=== PATIENT | female | born 1930 | race Caucasian/White ===

== ENCOUNTER 2018-02-25 09:58 | Observation (INO) | payer MEDICARE, OTHER ==
--- NOTE | 2018-02-25 10:00 | PDOC ---
Attending Attestation - Resident Resident Name: Payam Doyle - ED Attending Attestation I have performed the following: I have examined & evaluated the patient, The case was reviewed & discussed with the resident, I agree w/resident's findings & plan, Exceptions are as noted - HPI HPI: 02/25/18 10:03 Ms stewart is an 87-year-old female presented to emergency department via EMS due to alterations in mental status. Her last normal well was somewhere between 8 and 9 PM. This morning she was noted to be unresponsive. Pt daughter was called and she is bedside CODE MERA called and pt sent immediately to CT - Physicial Exam PE: 02/25/18 10:57 On examination Pt was not initially responsive Upon further assessment Re Assessment Pt resists examiner opening her eyes Pt looks down when eyes opened Pupils are reactive to light, not pin point lungs are clear to auscultation Card RRR No abdominal rigidity or distention No lower extremity edema Well perfused Neuro: CN in tact Face symmetric sensation in tact all extremities (Evident by pt withdrawing from painful stimuli) moves all extremities For complete NIHSS, please see resident note 02/27/18 09:57 - Critical Care Time Total Critical Care Time: 60 Critical Care Statement: The care of this patient involved high complexity decision making to prevent further life threatening deterioration of the patient 's condition and/or to evaluate & treat vital organ system(s) failure or risk of failure. - Medical Decision Making 02/25/18 10:04 AMS: DD includes: Hemorrhagic CVA, Large ischemic CVA, Sepsis/infection, Will do stroke orderset Re assess 02/25/18 18:22 EKG: HR 72, LBBB 02/25/18 18:22 Laboratory Tests 02/25/18 02/25/18 10:00 10:15 WBC 6.1 Hgb 14.7 Hct 43.4 Plt Count 284 BUN 16 Creatinine 0.8 Random Glucose 95 Creatine Kinase 65 Troponin I < 0.02 Pt seen in the ER by Dr Morris Pt is more arousable and in fact sat forward, moved extremities ? acute psychosis vs sub-acute ischemic intracranial event Discharge Disposition - Diagnosis Acute psychosis - Discharge Dispostion Disposition: CARE HOME FACILITY Condition at time of disposition: Stable Last Admission D/C Date: 07/27/11 Decision to Admit order: Yes - Prescriptions - Referrals - Patient Instructions - Post Discharge Activity
[2018-02-25 10:29] LABS: BASO % 0.3 % (0-2.0)
[2018-02-25 10:31] LABS: EOS % 3.3 % (0-4.5); HEMATOCRIT 43.4 % (32.4-45.2); HEMOGLOBIN 14.7 GM/dL (10.7-15.3); LYMPH % 21.9 % (8-40); MCH 30.9 pg (25.7-33.7); MCHC 33.7 g/dl (32.0-36.0); MEAN CELL VOLUME 91.5 fl (80-96); MEAN PLT VOLUME 8.1 fl (7.5-11.1); MONO % 9.4 % (3.8-10.2); NEUT % 65.1 % (42.8-82.8); PLATELET COUNT 284 K/MM3 (134-434); RBC 4.75 M/mm3 (3.60-5.2); WHITE BLOOD COUNT 6.1 K/mm3 (4.0-10.0)
[2018-02-25 10:43] LABS: INR 0.94 (0.83-1.09); PROTHROMBIN TIME (PATIENT) 11.1 SEC (9.7-13.0)
[2018-02-25 10:59] LABS: ALBUMIN 3.8 g/dl (3.4-5.0); ALK PHOS 66 U/L (45-117); ANION GAP 8 MMOL/L (8-16); BILIRUBIN,TOTAL 0.4 mg/dL (0.2-1); BLOOD UREA NITROGEN 16 mg/dL (7-18); CALCIUM 10.2 mg/dL (8.5-10.1); CHLORIDE 103 mmol/L (98-107); CHOLESTEROL 245 mg/dL (50-200); CO2 27 mmol/L (21-32); CREATININE 0.8 mg/dL (0.55-1.3); GLUCOSE,RANDOM 95 mg/dL (74-106); HDL CHOLESTEROL 117 mg/dL (40-60); POTASSIUM 4.3 mmol/L (3.5-5.1); SGOT/AST 21 U/L (15-37); SGPT/ALT 16 U/L (13-61); SODIUM 138 mmol/L (136-145); TOT PROT 7.3 g/dl (6.4-8.2); TRIGLYCERIDES 117 mg/dL (0-150)
[2018-02-25] MEDS: SODIUM CHLORIDE 1,000 ML IV SCH (11:00)
--- NOTE | 2018-02-25 11:00 | PDOC ---
History of Present Illness - General Chief Complaint: CVA/TIA Stated Complaint: POSS STROKE Time Seen by Provider: 02/25/18 10:02 History Source: Patient, Family (daughter) Exam Limitations: Unresponsive - History of Present Illness Initial Comments: 02/25/18 11:42 87 yo female MADDISON, history provided by daughter. Pmh of dementia (unspecified), Acute psychosis (received TPA 3 years ago, no confirmed stroke and believed to be acute psychosis) presents from [facility] after being lethargic and becoming unresponsive only to pain this AM. Dr. Childs follows pt at [facility] and states he saw her this AM, noted to be lethargic and possibly having an arrhythmia. Patients last known normal was 9 pm yesterday and was at baseline (walking, talking without difficulty). No recent illness or complaints reported by family. Past History - Past Medical History Allergies/Adverse Reactions: Allergies Allergy/AdvReac Type Severity Reaction Status Date / Time No Known Allergies Allergy Unverified 07/26/11 08:08 Home Medications: Ambulatory Orders Acetaminophen 1,000 mg PO DAILY 02/25/18 Amlodipine Besylate 5 mg PO DAILY 02/25/18 Divalproex [Depakote -] 125 mg PO BID 02/25/18 Donepezil HCl 10 mg PO HS 02/25/18 Duloxetine HCl 60 mg PO DAILY 02/25/18 Hydrochlorothiazide [Hctz -] 12.5 mg PO DAILY 02/25/18 Lipase/Protease/Amylase [Arian Acevedo 4,200 Unit Cap] 1 each PO DAILY 02/25/18 Magnesium Hydrox 2400MG/30Ml [Milk of Magnesia -] 30 ml PO DAILY 02/25/18 Melatonin 5 mg PO HS 02/25/18 Memantine HCl 10 mg PO BID 02/25/18 Pantoprazole Sodium 40 mg PO DAILY 02/25/18 Polyethylene Glycol 3350 [Purelax] 17 gm PO BID 02/25/18 Propylene Glycol/Peg 400/Pf [Systane 0.3-0.4% Eye Drops] 1 each OP DAILY Quetiapine Fumarate [Seroquel -] 25 mg PO HS 02/25/18 traZODone HCL [Trazodone HCl] 50 mg PO HS 02/25/18 COPD: No CHF: (CARDIOMEGALY) Dementia: Yes GI Disorders: Yes Hypercholesterolemia: Yes - Suicide/Smoking/Psychosocial Hx Smoking Status: No Smoking History: Never smoked Have you smoked in the past 12 months: No Number of Cigarettes Smoked Daily: 0 Information on smoking cessation initiated: No Hx Alcohol Use: No Drug/Substance Use Hx: No Substance Use Type: None Review of Systems - Review of Systems Able to Perform ROS?: No (unresponsive) *Physical Exam - Vital Signs Last Vital Signs Temp Pulse Resp BP Pulse Ox 73 18 142/68 97 02/25/18 10:01 02/25/18 10:01 02/25/18 10:01 02/25/18 10:01 - Physical Exam General Appearance: Yes: Nourished, Appropriately Dressed, Apparent Distress ( only responsive to pain) HEENT: positive: EOMI, ÍVCTOR. negative: Scleral Icterus (R), Scleral Icterus (L) Neck: negative: Carotid bruit Respiratory/Chest: positive: Lungs Clear, Normal Breath Sounds. negative: Respiratory Distress, Crackles, Wheezing Cardiovascular: positive: Regular Rhythm, Regular Rate, S1, S2. negative: Edema , JVD, Murmur Vascular Pulses: Dorsalis-Pedis (R): 3+, Doralis-Pedis (L): 3+ Gastrointestinal/Abdominal: positive: Normal Bowel Sounds. negative: Pulsatile Mass, Protuberent, Distended, Guarding Musculoskeletal: positive: Normal Inspection Extremity: positive: Normal Capillary Refill Integumentary: positive: Normal Color, Dry, Warm Neurologic: positive: Other (JUSTIN. WHen eyelids are held open, eyes moving spontaneously. Patient withdraws to pain in all extremities ). negative: Normal Mood/Affect, Motor Strength 5/5 (unable to assess) NIH Stroke Scale - Last Known Well Date/Time & Onset Date Last Known Well: 02/24/18 Time Last Known Well: 21:00 - Initial Evaluation Level of consciousness: Not alert, but arousable with minimal stimulation Ask patient the month and their age: Both incorrect (not responding) Ask patient to open & close eyes; make fist and let go: Both incorrect (not responding) Best gaze (horizontal eye movement): Partial gaze palsy Visual field testing: Bilateral hemianopia (blind including cortical blindness) (can not assess) Facial paresis (Show teeth/raise eyebrows/close eyes tight): Normal symmetrical movement Motor Function: Left Arm: Untestable (Joint fused orlimb amputated), explain: ( not following commands) Motor Function: Right Arm: Untestable (Joint fused or limb amputated), explain : (not following commands) Motor Function: Left Leg: Untestable (Joint fused or limb amputated), explain: (not following commands) Motor Function: Right Leg: Untestable )Joint fused orlimb amputated), explain: (not following commands) Limb Ataxia: Untestable (Joint fused or limb amputated), explain: (not following commands) Sensory(Use pinprick test arms,legs,trunk,face/side to side): Severe to total sensory loss (untestable) Best language (Describe picture, name items, read sentences): Mild to moderate aphasia Dysarthria (read several words): Near unintelligible or unable to speak Extinction and Inattention: Profound robbie-inattention or extinction to more than one modality - Total Score NIH Stroke Scale Score: 16 Critical Care Time/MDM Note - Medical Decision Making Note: 02/25/18 16:42 87 yo female [facility] of Discharge Disposition - Diagnosis Acute psychosis - Discharge Dispostion Condition at time of disposition: Stable Last Admission D/C Date: 07/27/11 Decision to Admit order: Yes - Referrals Referrals: Mt Childs MD [Primary Care Provider] - - Patient Instructions - Post Discharge Activity
[2018-02-25 11:08] LABS: URINE APPEARANCE CLEAR; URINE BILIRUBIN NEGATIVE (<2.0 mg/dL); URINE COLOR STRAW; URINE GLUCOSE (UA) NEGATIVE (NEGATIVE); URINE KETONE TRACE (NEGATIVE); URINE LEUK ESTERASE NEGATIVE (NEGATIVE); URINE NITRITE NEGATIVE (NEGATIVE); URINE PROTEIN NEGATIVE (NEGATIVE); URINE UROBILINOGEN NEGATIVE mg/dL (0.2-1.0)
[2018-02-25 11:39] LABS: COCAINE, UR NEGATIVE ng/ml (CUTOFF=300); METHADONE, UR NEGATIVE ng/ml (CUTOFF=300); OPIATES, URI NEGATIVE ng/ml (CUTOFF=300); PHENCYCLIDINE,URINE NEGATIVE ng/ml (CUTOFF=25); URINE AMPHETAMINES NEGATIVE ng/ml (CUTOFF=500); URINE BARBITURATES NEGATIVE ng/ml (CUTOFF=200); URINE BENZODIAZEPINES NEGATIVE ng/ml (CUTOFF=200)
--- NOTE | 2018-02-25 11:53 | CON.NEURO ---
Consult Consult Specialty:: [facility] Neurology Referred by:: Donald - History of Present Illness History of Present Illness: this is a pleasant 87-year-old albanian speaking woman who presents to the emergency room being brought in from [facility] with chief complaint of altered mental status. Patient lives permanently at the half-way patient was brought in the emergency room by ambulance after being found less responsive. Stroke protocol was initiated the patient's daughter who is a vocational rehabilitation counselor at [employer] [facility] [employer] was at the bedside. Patient does not speak Belarusian. Patient was last known normal around 8 to 9:00 PM last night February 24. No report of any recent travel. Patient used to live in [place] with her son. Patient has been at the half-way for over 1 year. On medication reconsultation I noted that the patient is on extensive medicine for memory/psychosis. In the emergency room patient was unresponsive difficult to arouse. Blood work and stroke protocol was initiated CAT scan of the head revealed no evidence of acute bleed. Stroke protocol NIH stroke scale was difficult to assess because of patient difficulty to cooperate/language barrier. There was no focality on the exam. Upon interviewing the daughter was a doctor 2 years ago patient had a similar episode patient [facility] patient received [facility]! Patient was transferred to [facility] where the MRI MR a of the brain revealed no evidence of acute RECOVERY ASSISTANT pathology. The whole episode was called questionable psychosis. In the emergency room again the patient was hemodynamically stable. No seizure-like activity. - History Source History Provided By: Family Member, Medical Record Limitations to Obtaining History: Clinical Condition - Past Medical History RECOVERY ASSISTANT: Yes: Alzheimer's, Dementia - Alcohol/Substance Use Hx Alcohol Use: No - Smoking History Smoking history: Never smoked Have you smoked in the past 12 months: No Aproximately how many cigarettes per day: 0 Home Medications - Allergies Allergies/Adverse Reactions: Allergies Allergy/AdvReac Type Severity Reaction Status Date / Time No Known Allergies Allergy Unverified 07/26/11 08:08 Family Disease History - Family Disease History Family History: Unable to Obtain Review of Systems Unable to obtain ROS, reason: unable to obtain Physical Exam-Neuro Vital Signs: Vital Signs Temperature 98.9 F 02/25/18 10:22 Pulse Rate 86 02/25/18 10:22 Respiratory Rate 18 02/25/18 10:22 Blood Pressure 163/74 02/25/18 10:22 O2 Sat by Pulse Oximetry (%) 100 02/25/18 10:22 Constitutional: Yes: Well Nourished Neck: Yes: WNL Labs: CBC, BMP 02/25/18 10:15 02/25/18 10:00 INR, PTT INR 0.94 (0.83-1.09) 02/25/18 10:15 - Neuro Exam Level Of Consciousness: Yes: Stuporous (ppatient seen in the emergency room no spontaneous movement resist eye opening looks down when I call her name no eyes deviation to either side doesn't follow command complaint of chest pain to her daughter gag is positive tone is increased all over planters are downgoing bilaterally. Pain symmetrically in all 4 extremities.) Cranial Nerves II-XII Intact: Yes Gag: Present DTR's: 1+ Left Bicep, 1+ Right Bicep, 1+ Right Tricep, 1+ Left Brachioradialis Babinski: Absent Imaging - Results Cat Scan: Image Reviewed Problem List - Problems (1) Acute psychosis Assessment/Plan: 87-year-old woman with history of dementia and psych history on multiple psychiatric medication presents with altered mental status. Gross neurological examination although limited does not pinpoint to acute CVA. Neurological differential diagnoses #1 acute psychotic reaction. #2 catatonia. #3 stroke prevention. Plan 1 admit to monitored setting. 2. Seizure precautions. 3. Benadryl 25 mg IV. 4. Cogentin. 5. No TPA. 6. MRI of the brain with no contrast. 7. Obtain the results of the previous admission to [facility]. 8. Stop the Aricept. 9. Psych evaluation. 10. DVT prophylaxis with SCDs. 11. Bedside physical therapy. Case was discussed with the daughter. Thank you for letting me be part of this patient's neurological care. Code(s): F23 - BRIEF PSYCHOTIC DISORDER
[2018-02-25] MEDS ORDERED: ACETAMINOPHEN 1000 MG/100 ML VIAL (NON FORMULARY) IVPB ONE (12:53)
[2018-02-25] MEDS ORDERED: ACETAMINOPHEN INJECTION 100 ML IVPB ONE (13:38)
--- NOTE | 2018-02-25 15:00 | EKG ---
Test Reason : Blood Pressure : / mmHG Vent. Rate : 072 BPM Atrial Rate : 072 BPM P-R Int : 144 ms QRS Dur : 148 ms QT Int : 450 ms P-R-T Axes : 070 -61 087 degrees QTc Int : 492 ms NORMAL SINUS RHYTHM LEFT AXIS DEVIATION LEFT BUNDLE BRANCH BLOCK ABNORMAL ECG NO PREVIOUS ECGS AVAILABLE Confirmed by HOMERO GOLDMAN MD ([id number]) on 02/25/2018 3:00:10 PM Referred By: Confirmed By:HOMERO GOLDMAN MD
--- NOTE | 2018-02-25 16:32 | HP ---
Admitting History and Physical - Admission Chief Complaint: 87 y.o F was admitted from [facility] with acure change of MS, unarousable. Inthe ER MRI brain, CT brain, neuro eval r/o acute CVA and suggested acute psychosis. The pt's daughter and son described 2 similar previous episodes, one of the happened at [facility] and resulted in TPA, intubation though the subsequent MRI was negative for CVA. History of Present Illness: B/l OA knees HLD Difficulty walking Dementia. HTN Osteoporosis Psychosis History Source: Family Member, Medical Record Limitations to Obtaining History: Clinical Condition - Past Medical History TOOLROOM MACHINIST: Yes: Alzheimer's, Dementia - Smoking History Smoking history: Never smoked Have you smoked in the past 12 months: No Aproximately how many cigarettes per day: 0 - Alcohol/Substance Use Hx Alcohol Use: No Home Medications - Allergies Allergies/Adverse Reactions: Allergies Allergy/AdvReac Type Severity Reaction Status Date / Time No Known Allergies Allergy Unverified 07/26/11 08:08 - Home Medications Home Medications: Ambulatory Orders Acetaminophen 1,000 mg PO DAILY 02/25/18 Amlodipine Besylate 5 mg PO DAILY 02/25/18 Divalproex [Depakote -] 125 mg PO BID 02/25/18 Donepezil HCl 10 mg PO HS 02/25/18 Duloxetine HCl 60 mg PO DAILY 02/25/18 Hydrochlorothiazide [Hctz -] 12.5 mg PO DAILY 02/25/18 Lipase/Protease/Amylase [[address] Dr 4,200 Unit Cap] 1 each PO DAILY 02/25/18 Magnesium Hydrox 2400MG/30Ml [Milk of Magnesia -] 30 ml PO DAILY 02/25/18 Melatonin 5 mg PO HS 02/25/18 Memantine HCl 10 mg PO BID 02/25/18 Pantoprazole Sodium 40 mg PO DAILY 02/25/18 Polyethylene Glycol 3350 [Purelax] 17 gm PO BID 02/25/18 Propylene Glycol/Peg 400/Pf [Systane 0.3-0.4% Eye Drops] 1 each OP DAILY Quetiapine Fumarate [Seroquel -] 25 mg PO HS 02/25/18 traZODone HCL [Trazodone HCl] 50 mg PO HS 02/25/18 Family Disease History - Family Disease History Family History: Unremarkable Review of Systems Unable to obtain ROS, reason: MS change Physical Examination Vital Signs: Vital Signs Temperature 98.9 F 02/25/18 10:22 Pulse Rate 83 02/25/18 13:44 Respiratory Rate 15 02/25/18 13:44 Blood Pressure 162/64 02/25/18 13:44 O2 Sat by Pulse Oximetry (%) 100 02/25/18 13:44 Constitutional: Yes: Well Nourished, No Distress, Calm Eyes: Yes: Conjunctiva Clear, EOM Intact HENT: Yes: Atraumatic, Normocephalic. No: Drooling, Epistaxis Neck: Yes: Supple, Trachea Midline Respiratory: Yes: Regular, CTA Bilaterally. No: Cough Gastrointestinal: Yes: Normal Bowel Sounds, Soft. No: Abdomen, Obese, Ascites ...Rectal Exam: Yes: Deferred Renal/: No: Anuria, Bladder Distention Breast(s): Yes: WNL Musculoskeletal: No: Back Pain, Joint Stiffness Extremities: No: Amputation, Calf Tenderness Edema: No Peripheral Pulses WNL: Yes Integumentary: Yes: WNL Neurological: Yes: Alert. No: Oriented, Aphasia, Asterixis, Ataxia ...Motor Strength: WNL Psychiatric: Yes: Alert. No: Oriented, Agitated, Suicidal Ideation Labs: CBC, BMP 02/25/18 10:15 02/25/18 10:00 Laboratory Results - last 24 hr 02/25/18 02/25/18 02/25/18 10:00 10:11 10:15 WBC 6.1 RBC 4.75 Hgb 14.7 Hct 43.4 MCV 91.5 MCH 30.9 MCHC 33.7 RDW 14.0 Plt Count 284 MPV 8.1 Absolute Neuts (auto) 4.0 Neutrophils % 65.1 Neutrophils % (Manual) 65.1 Band Neutrophils % 0.0 Lymphocytes % 21.9 Lymphocytes % (Manual) 21.9 Monocytes % 9.4 Monocytes % (Manual) 9 Eosinophils % 3.3 Eosinophils % (Manual) 3.3 Basophils % 0.3 Basophils % (Manual) 0.3 Nucleated RBC % 0 PT with INR INR Sodium 138 Potassium 4.3 Chloride 103 Carbon Dioxide 27 Anion Gap 8 BUN 16 Creatinine 0.8 Creat Clearance w eGFR > 60 POC Glucometer 82.78686 Random Glucose 95 Calcium 10.2 H Total Bilirubin 0.4 AST 21 ALT 16 Alkaline Phosphatase 66 Creatine Kinase 65 Troponin I < 0.02 Total Protein 7.3 Albumin 3.8 Triglycerides 117 Cholesterol 245 H Total LDL Cholesterol 115 H HDL Cholesterol 117 H Urine Color Urine Appearance Urine pH Ur Specific [place] Urine Protein Urine Glucose (UA) Urine Ketones Urine Blood Urine Nitrite Urine Bilirubin Urine Urobilinogen Ur Leukocyte Esterase Opiates Screen Methadone Screen Barbiturate Screen Valproic Acid Phencyclidine Screen Ur Amphetamines Screen MDMA (Ecstasy) Screen Benzodiazepines Screen Cocaine Screen U Marijuana (THC) Screen Blood Type Antibody Screen 02/25/18 02/25/18 02/25/18 10:15 10:15 10:37 WBC RBC Hgb Hct MCV MCH MCHC RDW Plt Count MPV Absolute Neuts (auto) Neutrophils % Neutrophils % (Manual) Band Neutrophils % Lymphocytes % Lymphocytes % (Manual) Monocytes % Monocytes % (Manual) Eosinophils % Eosinophils % (Manual) Basophils % Basophils % (Manual) Nucleated RBC % PT with INR 11.10 INR 0.94 Sodium Potassium Chloride Carbon Dioxide Anion Gap BUN Creatinine Creat Clearance w eGFR POC Glucometer Random Glucose Calcium Total Bilirubin AST ALT Alkaline Phosphatase Creatine Kinase Troponin I Total Protein Albumin Triglycerides Cholesterol Total LDL Cholesterol HDL Cholesterol Urine Color Straw Urine Appearance Clear Urine pH 8.0 Ur Specific [place] 1.006 L Urine Protein Negative Urine Glucose (UA) Negative Urine Ketones Trace H Urine Blood Negative Urine Nitrite Negative Urine Bilirubin Negative Urine Urobilinogen Negative Ur Leukocyte Esterase Negative Opiates Screen Methadone Screen Barbiturate Screen Valproic Acid Phencyclidine Screen Ur Amphetamines Screen MDMA (Ecstasy) Screen Benzodiazepines Screen Cocaine Screen U Marijuana (THC) Screen Blood Type B POSITIVE Antibody Screen Negative 02/25/18 02/25/18 10:49 11:18 WBC RBC Hgb Hct MCV MCH MCHC RDW Plt Count MPV Absolute Neuts (auto) Neutrophils % Neutrophils % (Manual) Band Neutrophils % Lymphocytes % Lymphocytes % (Manual) Monocytes % Monocytes % (Manual) Eosinophils % Eosinophils % (Manual) Basophils % Basophils % (Manual) Nucleated RBC % PT with INR INR Sodium Potassium Chloride Carbon Dioxide Anion Gap BUN Creatinine Creat Clearance w eGFR POC Glucometer Random Glucose Calcium Total Bilirubin AST ALT Alkaline Phosphatase Creatine Kinase Troponin I Total Protein Albumin Triglycerides Cholesterol Total LDL Cholesterol HDL Cholesterol Urine Color Urine Appearance Urine pH Ur Specific [place] Urine Protein Urine Glucose (UA) Urine Ketones Urine Blood Urine Nitrite Urine Bilirubin Urine Urobilinogen Ur Leukocyte Esterase Opiates Screen Negative Methadone Screen Negative Barbiturate Screen Negative Valproic Acid 17.6 L Phencyclidine Screen Negative Ur Amphetamines Screen Negative MDMA (Ecstasy) Screen Negative Benzodiazepines Screen Negative Cocaine Screen Negative U Marijuana (THC) Screen Negative Blood Type Antibody Screen Imaging - Results X-ray: Report Reviewed Cat Scan: Report Reviewed MRI: Report Reviewed EKG: Report Reviewed Problem List - Problems (1) Acute psychosis Assessment/Plan: Spoke to Dr Morris MS improved. Observe for acute change in MS Re-start meds. Code(s): F23 - BRIEF PSYCHOTIC DISORDER (2) LBBB (left bundle branch block) Assessment/Plan: No indications for new changes. Observe Code(s): I44.7 - LEFT BUNDLE-BRANCH BLOCK, UNSPECIFIED (3) Dementia Assessment/Plan: Continue Aricept/Namenda. Code(s): F03.90 - UNSPECIFIED DEMENTIA WITHOUT BEHAVIORAL DISTURBANCE Qualifiers: Dementia type: Alzheimer's disease
[2018-02-25 18:37] VITALS: BMI 25.7
--- NOTE | 2018-02-25 21:02 | PN ---
Mental Health Exam - Mental Status Exam Alert and Oriented to: Person (I DONT KNOW DATE OR TIME. ) Cognitive Function: Grossly Intact Patient Appearance: Well Groomed (SMILES WHEN SPOKEN TOO) Mood: Withdrawn Affect: Flat Patient Behavior: Passive, Talkative Speech Pattern: Clear (IN GERMAN TO INTREPETER. ) Voice Loudness: Mildly Loud Thought Process: Tangential, Disoriented Thought Disorder: Not Present Hallucinations: None Suicidal Ideation: None, Denies Homicidal Ideation: None, Denies Insight/Judgement: Impaired Sleep: Well ("I SLEEP WELL". ) Appetite: Fair Muscle strength/Tone: Mild Hypotonicity Gait/Station: Deferred (I WALK IN nH WITH A WALKER, I DONT FALL.)
--- NOTE | 2018-02-25 21:10 | PN ---
Progress Note (short form) - Note Progress Note: PAUL INTREPETER #[id number] IS HELPFUL IN TRANSLATION DURING THIS INTERVIEW, SPOKE FOR 15 MINS. THIS BUBBA 87 YO [place] SPEAKING FEMALE RESIDENT OF [facility].cLIENT WAS UNRESPONSIVE YESTERDAY AT [place].CLIENT DOES NOT RECALL WHAT HAPPENED. AFTER READING NEUROLOGY CONSULT HAS 2 EPISODES SIMILAR IN PAST OF UNKNOWN ORIGIN. COLLABORATED BY DAUGHTER AND FAMILY. cLIENT PLEASANT ON INTERVIEW, HAS POSITIVE OUTLOOK, SPEAKS WELL OF HER FACILITY AND IS HOPEFUL CURRENTLY ON ARICEPT/NAMENDA WHICH IS BEING TAPERED (STOPPING ARICEPT PER NEURO) . cLIENT IS ALERT BUT DISORIENTATED BY 2. NO DELUSIONS, NO PSYCHOSIS NO DEPRESSION. NO ANXIETY. sAFETY CONSIDERATIONS WITH GAIT. DENIES HALLUCINATIONS, DENIES SUICIDAL IDEATION. SEE MENTAL STATUS ASSESSMENT. Problem List - Problems (1) Acute on chronic alteration in mental status Assessment/Plan: MONITOR FOR NOW FAMILY HISTORY MEDICAL CLEARANCE PRIOR TO RE-EVAL. Code(s): R41.82 - ALTERED MENTAL STATUS, UNSPECIFIED (2) Dementia Assessment/Plan: MONITOR FOR NOW NO NEED FOR MEDICATION REMINISCENCE THERAPY. Code(s): F03.90 - UNSPECIFIED DEMENTIA WITHOUT BEHAVIORAL DISTURBANCE Qualifiers: Dementia type: Alzheimer's disease Dementia behavioral disturbance: without behavioral disturbance
[2018-02-25] MEDS ORDERED: MELATONIN 5 MG TABLETS PO SCH (22:00)
[2018-02-25] MEDS ORDERED: QUEtiapine FUMARATE 25 MG TABLET (FP) PO SCH (22:00)
[2018-02-25] MEDS ORDERED: DONEPEZIL HCL 10 MG TABLET (FP) PO SCH (22:00)
[2018-02-25] MEDS ORDERED: traZODone HCL 50 MG TABLET (FP) PO SCH (22:00)
--- NOTE | 2018-02-25 22:12 | HOSP ---
Physical Examination Vital Signs: Vital Signs Temperature 98.1 F 02/25/18 18:00 Pulse Rate 66 02/25/18 18:00 Respiratory Rate 18 02/25/18 18:00 Blood Pressure 152/75 02/25/18 18:00 O2 Sat by Pulse Oximetry (%) 97 02/25/18 17:17 Labs: CBC, BMP 02/25/18 10:15 02/25/18 10:00 Hospitalist Encounter Assessment: Paged by nurse regarding pt's complaint of chest pain. Pt's Troponin collected this AM at 10 was <0.02. Repeat Troponin collected at 21:00 also <0.02. STAT EKG done. Read by myself and my senior resident. No new EKG changes when compared to her EKG that was performed this AM in the ED at 10:21:40 other than the addition of single PVC's. Informed nurse to page me immediately if any acute changes in pt's status.
[2018-02-25] MEDS ORDERED: PT OWN MED DRAWER 7, Y5N ONE (22:23)
[2018-02-25] MEDS: DIVALPROEX SODIUM 125 MG TABLET E.C. PO SCH (22:26)
[2018-02-25] MEDS: MEMANTINE HCL 10 MG TABLET (FP) PO SCH (22:27)
[2018-02-25] MEDS: POLYETHYLENE GLYCOL 3350 119 GM BTL PO SCH (22:27)
--- NOTE | 2018-02-26 09:06 | CON.CARD ---
Cardiology Consult (text) - Consultation Consultation Note: Consult Dictated Hx obtained through [employer] senior integration developer Christina # [id number] - [place] and from review of EMR IMP: Underlying dementia and psych disorder Catatonia Abnl ECG, LBBB Atypical CP- pleuritic REC: 1. Echo to rule out pericardial effusion, EF assess 2. Trend cardiac enzyme, repeat at 1 pm today 3. ASA 81mg daily 4. Given LBBB and age, poor historian, recommend pharm MIBI prior to d/c. Will d /w daughter. Thank you.
--- NOTE | 2018-02-26 09:20 | PN ---
Progress Note (short form) - Note Progress Note: Awake, alert, NAD Troponin I, CPK- negative x2 ECHO in progress. Spoke to cardiology EST can be done as outpt. Laboratory Results - last 24 hr 02/25/18 02/25/18 02/25/18 10:00 10:11 10:15 WBC 6.1 RBC 4.75 Hgb 14.7 Hct 43.4 MCV 91.5 MCH 30.9 MCHC 33.7 RDW 14.0 Plt Count 284 MPV 8.1 Absolute Neuts (auto) 4.0 Neutrophils % 65.1 Neutrophils % (Manual) 65.1 Band Neutrophils % 0.0 Lymphocytes % 21.9 Lymphocytes % (Manual) 21.9 Monocytes % 9.4 Monocytes % (Manual) 9 Eosinophils % 3.3 Eosinophils % (Manual) 3.3 Basophils % 0.3 Basophils % (Manual) 0.3 Nucleated RBC % 0 PT with INR INR Sodium 138 Potassium 4.3 Chloride 103 Carbon Dioxide 27 Anion Gap 8 BUN 16 Creatinine 0.8 Creat Clearance w eGFR > 60 POC Glucometer 82.68765 Random Glucose 95 Calcium 10.2 H Total Bilirubin 0.4 AST 21 ALT 16 Alkaline Phosphatase 66 Creatine Kinase 65 Troponin I < 0.02 Total Protein 7.3 Albumin 3.8 Triglycerides 117 Cholesterol 245 H Total LDL Cholesterol 115 H HDL Cholesterol 117 H Urine Color Urine Appearance Urine pH Ur Specific [place] Urine Protein Urine Glucose (UA) Urine Ketones Urine Blood Urine Nitrite Urine Bilirubin Urine Urobilinogen Ur Leukocyte Esterase Opiates Screen Methadone Screen Barbiturate Screen Valproic Acid Phencyclidine Screen Ur Amphetamines Screen MDMA (Ecstasy) Screen Benzodiazepines Screen Cocaine Screen U Marijuana (THC) Screen Blood Type Antibody Screen 02/25/18 02/25/18 02/25/18 10:15 10:15 10:37 WBC RBC Hgb Hct MCV MCH MCHC RDW Plt Count MPV Absolute Neuts (auto) Neutrophils % Neutrophils % (Manual) Band Neutrophils % Lymphocytes % Lymphocytes % (Manual) Monocytes % Monocytes % (Manual) Eosinophils % Eosinophils % (Manual) Basophils % Basophils % (Manual) Nucleated RBC % PT with INR 11.10 INR 0.94 Sodium Potassium Chloride Carbon Dioxide Anion Gap BUN Creatinine Creat Clearance w eGFR POC Glucometer Random Glucose Calcium Total Bilirubin AST ALT Alkaline Phosphatase Creatine Kinase Troponin I Total Protein Albumin Triglycerides Cholesterol Total LDL Cholesterol HDL Cholesterol Urine Color Straw Urine Appearance Clear Urine pH 8.0 Ur Specific [place] 1.006 L Urine Protein Negative Urine Glucose (UA) Negative Urine Ketones Trace H Urine Blood Negative Urine Nitrite Negative Urine Bilirubin Negative Urine Urobilinogen Negative Ur Leukocyte Esterase Negative Opiates Screen Methadone Screen Barbiturate Screen Valproic Acid Phencyclidine Screen Ur Amphetamines Screen MDMA (Ecstasy) Screen Benzodiazepines Screen Cocaine Screen U Marijuana (THC) Screen Blood Type B POSITIVE Antibody Screen Negative 02/25/18 02/25/18 02/25/18 10:49 11:18 17:45 WBC RBC Hgb Hct MCV MCH MCHC RDW Plt Count MPV Absolute Neuts (auto) Neutrophils % Neutrophils % (Manual) Band Neutrophils % Lymphocytes % Lymphocytes % (Manual) Monocytes % Monocytes % (Manual) Eosinophils % Eosinophils % (Manual) Basophils % Basophils % (Manual) Nucleated RBC % PT with INR INR Sodium Potassium Chloride Carbon Dioxide Anion Gap BUN Creatinine Creat Clearance w eGFR POC Glucometer 86 Random Glucose Calcium Total Bilirubin AST ALT Alkaline Phosphatase Creatine Kinase Troponin I Total Protein Albumin Triglycerides Cholesterol Total LDL Cholesterol HDL Cholesterol Urine Color Urine Appearance Urine pH Ur Specific [place] Urine Protein Urine Glucose (UA) Urine Ketones Urine Blood Urine Nitrite Urine Bilirubin Urine Urobilinogen Ur Leukocyte Esterase Opiates Screen Negative Methadone Screen Negative Barbiturate Screen Negative Valproic Acid 17.6 L Phencyclidine Screen Negative Ur Amphetamines Screen Negative MDMA (Ecstasy) Screen Negative Benzodiazepines Screen Negative Cocaine Screen Negative U Marijuana (THC) Screen Negative Blood Type Antibody Screen 02/25/18 02/25/18 02/25/18 18:00 21:00 23:55 WBC RBC Hgb Hct MCV MCH MCHC RDW Plt Count MPV Absolute Neuts (auto) Neutrophils % Neutrophils % (Manual) Band Neutrophils % Lymphocytes % Lymphocytes % (Manual) Monocytes % Monocytes % (Manual) Eosinophils % Eosinophils % (Manual) Basophils % Basophils % (Manual) Nucleated RBC % PT with INR INR Sodium Potassium Chloride Carbon Dioxide Anion Gap BUN Creatinine Creat Clearance w eGFR POC Glucometer 93 Random Glucose Calcium Total Bilirubin AST ALT Alkaline Phosphatase Creatine Kinase 37 Troponin I < 0.02 Total Protein Albumin Triglycerides Cholesterol Total LDL Cholesterol HDL Cholesterol Urine Color Urine Appearance Urine pH Ur Specific [place] Urine Protein Urine Glucose (UA) Urine Ketones Urine Blood Urine Nitrite Urine Bilirubin Urine Urobilinogen Ur Leukocyte Esterase Opiates Screen Methadone Screen Barbiturate Screen Valproic Acid Phencyclidine Screen Ur Amphetamines Screen MDMA (Ecstasy) Screen Benzodiazepines Screen Cocaine Screen U Marijuana (THC) Screen Blood Type B POSITIVE Antibody Screen 02/26/18 02/26/18 05:29 06:00 WBC RBC Hgb Hct MCV MCH MCHC RDW Plt Count MPV Absolute Neuts (auto) Neutrophils % Neutrophils % (Manual) Band Neutrophils % Lymphocytes % Lymphocytes % (Manual) Monocytes % Monocytes % (Manual) Eosinophils % Eosinophils % (Manual) Basophils % Basophils % (Manual) Nucleated RBC % PT with INR INR Sodium Potassium Chloride Carbon Dioxide Anion Gap BUN Creatinine Creat Clearance w eGFR POC Glucometer 95 Random Glucose Calcium Total Bilirubin AST ALT Alkaline Phosphatase Creatine Kinase 39 Troponin I 0.02 Total Protein Albumin Triglycerides Cholesterol Total LDL Cholesterol HDL Cholesterol Urine Color Urine Appearance Urine pH Ur Specific [place] Urine Protein Urine Glucose (UA) Urine Ketones Urine Blood Urine Nitrite Urine Bilirubin Urine Urobilinogen Ur Leukocyte Esterase Opiates Screen Methadone Screen Barbiturate Screen Valproic Acid Phencyclidine Screen Ur Amphetamines Screen MDMA (Ecstasy) Screen Benzodiazepines Screen Cocaine Screen U Marijuana (THC) Screen Blood Type Antibody Screen Vital Signs (72 hours) 02/25/18 02/25/18 02/25/18 10:01 10:22 13:44 Temperature 98.9 F Pulse Rate 73 Pulse Rate [ 86 83 Apical] Respiratory 18 18 15 Rate Blood Pressure 142/68 Blood Pressure 163/74 162/64 [Right Arm] O2 Sat by Pulse 97 100 100 Oximetry (%) 02/25/18 02/25/18 02/25/18 17:17 17:32 18:00 Temperature 98.1 F 98.1 F Pulse Rate 66 66 Pulse Rate [ Apical] Respiratory 18 18 Rate Blood Pressure 152/75 152/75 Blood Pressure [Right Arm] O2 Sat by Pulse 97 Oximetry (%) 02/25/18 02/26/18 02/26/18 21:00 02:00 05:52 Temperature 98.8 F 97.9 F 97.9 F Pulse Rate 63 61 79 Pulse Rate [ Apical] Respiratory 16 20 18 Rate Blood Pressure 158/72 137/64 156/99 Blood Pressure [Right Arm] O2 Sat by Pulse 95 Oximetry (%) Awake, alert, follows commands Neck supple Lungs are Clear Heart S1s2 regular Abdomen soft, NT EXT-no CCE Plan ASA 81 D/c to [facility] Problem List - Problems (1) Acute psychosis Code(s): F23 - BRIEF PSYCHOTIC DISORDER (2) LBBB (left bundle branch block) Code(s): I44.7 - LEFT BUNDLE-BRANCH BLOCK, UNSPECIFIED (3) Dementia Code(s): F03.90 - UNSPECIFIED DEMENTIA WITHOUT BEHAVIORAL DISTURBANCE Qualifiers: Dementia type: Alzheimer's disease Dementia behavioral disturbance: without behavioral disturbance
--- NOTE | 2018-02-26 09:22 | DS ---
Physical Examination Vital Signs: Vital Signs Temperature 97.9 F 02/26/18 05:52 Pulse Rate 79 02/26/18 05:52 Respiratory Rate 18 02/26/18 05:52 Blood Pressure 156/99 02/26/18 05:52 O2 Sat by Pulse Oximetry (%) 95 02/25/18 21:00 Constitutional: Yes: No Distress, Calm Eyes: Yes: Conjunctiva Clear, EOM Intact HENT: Yes: Atraumatic, Normocephalic Neck: Yes: Supple, Trachea Midline Cardiovascular: Yes: Regular Rate and Rhythm Respiratory: Yes: Regular, CTA Bilaterally Gastrointestinal: Yes: Normal Bowel Sounds, Soft. No: Abdomen, Obese ...Rectal Exam: Yes: Deferred Renal/: No: Bladder Distention Breast(s): Yes: WNL Musculoskeletal: No: Back Pain, Joint Stiffness Extremities: No: Amputation, Delayed Capillary Refill Edema: No Peripheral Pulses WNL: Yes Integumentary: Yes: WNL Neurological: Yes: Alert ...Motor Strength: WNL Psychiatric: Yes: Alert. No: Agitated, Suicidal Ideation Labs: CBC, BMP 02/25/18 10:15 02/25/18 10:00 Discharge Summary Reason For Visit: ACUTE PSYCHOSIS, LBBB, atypical CP Current Active Problems Acute on chronic alteration in mental status (Acute) Acute psychosis (Acute) Dementia (Acute) LBBB (left bundle branch block) (Acute) Condition: Stable - Instructions Referrals: Mt Childs MD [Primary Care Provider] - Disposition: [facility] - Home Medications Comprehensive Discharge Medication List: Ambulatory Orders Acetaminophen 1,000 mg PO DAILY 02/25/18 Amlodipine Besylate 5 mg PO DAILY 02/25/18 Divalproex [Depakote -] 125 mg PO BID 02/25/18 Donepezil HCl 10 mg PO HS 02/25/18 Duloxetine HCl 60 mg PO DAILY 02/25/18 Hydrochlorothiazide [Hctz -] 12.5 mg PO DAILY 02/25/18 Lipase/Protease/Amylase [Arian Acevedo 4,200 Unit Cap] 1 each PO DAILY 02/25/18 Magnesium Hydrox 2400MG/30Ml [Milk of Magnesia -] 30 ml PO DAILY 02/25/18 Melatonin 5 mg PO HS 02/25/18 Memantine HCl 10 mg PO BID 10/11/18 Pantoprazole Sodium 40 mg PO DAILY 02/25/18 Polyethylene Glycol 3350 [Purelax] 17 gm PO BID 02/25/18 Propylene Glycol/Peg 400/Pf [Systane 0.3-0.4% Eye Drops] 1 each OP DAILY Quetiapine Fumarate [Seroquel -] 25 mg PO HS 02/25/18 traZODone HCL [Trazodone HCl] 50 mg PO HS 02/25/18
[2018-02-26] MEDS ORDERED: PT OWN MED DRAWER 7, Y5N ONE (09:30)
--- NOTE | 2018-02-26 09:43 | EKG ---
Test Reason : Blood Pressure : / mmHG Vent. Rate : 067 BPM Atrial Rate : 067 BPM P-R Int : 170 ms QRS Dur : 140 ms QT Int : 444 ms P-R-T Axes : 064 -54 083 degrees QTc Int : 469 ms SINUS RHYTHM WITH OCCASIONAL PREMATURE VENTRICULAR COMPLEXES LEFT AXIS DEVIATION LEFT BUNDLE BRANCH BLOCK ABNORMAL ECG WHEN COMPARED WITH ECG OF 25-FEB-2018 10:21, PREMATURE VENTRICULAR COMPLEXES ARE NOW PRESENT Confirmed by VICKI BURT MD ([id number]) on 02/26/2018 9:42:31 AM Referred By: ZEYNEP Confirmed By:VICKI BURT MD
--- NOTE | 2018-02-26 09:43 | CONS ---
DATE OF CONSULTATION: 02/26/2018 REASON FOR CONSULTATION: The consultation is requested by Dr. Mt Childs for abnormal ECG and chest pain. HISTORY OF PRESENT ILLNESS: The history is obtained through [employer] interpreter and translator Christina, ID number [id number], and review of the medical record. The patient speaks Lao and cannot communicate in Congolese. The patient is an 87-year-old female who was brought to the emergency room on February 25, 2018, from the retirement where she was found nonresponsive. Initially, a stroke protocol was initiated and she was sent for a stat head CT scan which was unremarkable. Neurology was consulted and ordered an MRI which was negative for an acute stroke. The patient was noted to be on multiple psychiatric medications and initially the clinical impression was catatonia. Over the course of the admission she has regained her normal consciousness and at one point mentioned to 1 of the nurses through a dining chair seat cushion trimmer that she was experiencing some left-sided chest pain. With the Lao interpreter and translator, the patient acknowledged that she has been experiencing left-sided chest discomfort underneath the left breast, but it is specifically worse with change of position and with deep breathing. She denies shortness of breath, nausea, vomiting or radiation of the pain. She is not having chest pain with physical exertion. Prior to yesterday, she denied any sort of chest discomfort with physical exertion or any type of anginal symptoms. She denies abdominal pain, nausea or vomiting. She denies any recent viral upper respiratory infections, cough or flu-like illnesses. PAST MEDICAL HISTORY: Significant for psychiatric disorder, underlying mild dementia, hypertension, GERD, pancreatic insufficiency. ALLERGIES: She has no known drug allergies. CURRENT MEDICATIONS: Include amlodipine 5 mg p.o. daily; divalproex 125 mg p.o. b.i.d.; donepezil 10 mg p.o. at bedtime; duloxetine 60 mg p.o. daily; hydrochlorothiazide 12.5 mg p.o. daily; melatonin 5 mg p.o. at bedtime; memantine 10 mg p.o. b.i.d.; Pancrease 1 tablet daily; pantoprazole 40 mg p.o. daily; quetiapine 25 mg p.o. at bedtime; and trazodone 50 mg p.o. at bedtime. FAMILY HISTORY: Noncontributory. SOCIAL HISTORY: Patient lives in a retirement, denies smoking. PHYSICAL EXAMINATION: General: Currently alert, oriented, in no distress. HEENT: Anicteric. Vital Signs: Afebrile with temperature of 97.9, pulse 79, blood pressure between 140 and 150 over 60 to 80, saturation of 95% to 98% on room air. Neck: There is no elevation of the jugular venous pressure and no carotid bruits. Cardiovascular: There was no median sternotomy scar. The heart was regular without murmurs. Chest: Clear bilaterally. Abdomen: Soft, nontender with good bowel sounds. Extremities: Warm with no significant pitting edema. Her ECG showed normal sinus rhythm with left bundle branch block and there was no previous comparison. Brain MRI was unremarkable. Chest x-ray showed no infiltrate or congestion. CBC was normal. INR was normal. Sodium was normal. Potassium was 4.3. Creatinine was 0.8. BUN was normal. LFTs were normal. Total cholesterol 245, LDL 115. CK and troponin are negative x3 sets. Urinalysis showed trace ketones, otherwise negative and a toxicology screen showed no substances. IMPRESSION: 1. Underlying dementia and psychiatric disorder. 2. Catatonia. 3. Abnormal electrocardiogram with left bundle branch block. 4. Atypical chest pain, pleuritic: Low suspicion for pulmonary embolism. RECOMMENDATIONS: 1. Echocardiogram today to rule out pericardial effusion and assess the ejection fraction. 2. Will trend cardiac enzymes with repeat set at noon today.3. Aspirin 81 mg daily. 4. Can check D-dimer level. 5. Given the left bundle branch block and her advanced age and history of hypertension and the fact that she is a poor historian recommend a pharmacological nuclear stress test prior to discharge. Will discuss with daughter. Dann [id number]
[2018-02-26] MEDS ORDERED: amLODIPine BESYLATE 5 MG TABLET (FP) PO SCH (10:00)
[2018-02-26] MEDS ORDERED: PANTOPRAZOLE 40 MG TABLET (FP) PO SCH (10:00)
[2018-02-26] MEDS ORDERED: DULoxetine HCL 30 MG CAPSULE.DR (FP) PO SCH (10:00)
[2018-02-26] MEDS ORDERED: MAGNESIUM HYDROX 2400MG/30ML ORAL SUSPENSION 30 ML CUP PO SCH (10:00)
[2018-02-26] MEDS ORDERED: HYDROCHLOROTHIAZIDE 12.5 MG CAPSULE (FP) PO SCH (10:00)
[2018-02-26] MEDS ORDERED: PATIENT'S OWN MEDICATION (NON-FORMULARY) (Lipase/Protease/Amylase [Pancreaze Dr 4,200 Unit PO SCH (10:00)
[2018-02-26] MEDS: MEMANTINE HCL 10 MG TABLET (FP) PO SCH (10:31)
[2018-02-26] MEDS: DIVALPROEX SODIUM 125 MG TABLET E.C. PO SCH (10:34)
[2018-02-26] MEDS: SODIUM CHLORIDE 1,000 ML IV SCH (10:35)
[2018-02-26] MEDS: POLYETHYLENE GLYCOL 3350 119 GM BTL PO SCH (10:35)
--- NOTE | 2018-02-26 11:56 | ECHO ---
Name: NAHOMY BERRY Exam:Adult Echocardiogram Study Date: 02/26/2018 09:06 AM Age: 87 yrs Reason For Study: LV Function Height: 63 in Weight: 145 lb BSA: 1.7 m2 MMode/2D Measurements & Calculations IVSd: 0.98 cm Ao root diam: 2.3 cm LVIDd: 4.3 cm LA dimension: 2.7 cm LVIDs: 3.1 cm LVPWd: 0.98 cm EDV(Teich): 83.8 ml LVOT diam: 1.6 cm ESV(Teich): 36.9 ml RV S Morgan: 10.9 cm/sec Doppler Measurements & Calculations AI P1/2t: 524.3 msec AI max morgan: 325.8 cm/sec AI max P.5 mmHg AI dec slope: 182.0 cm/sec2 TR max morgan: 245.1 cm/sec Med Peak E' Morgan: 5.8 cm/sec TR max P.0 mmHg Lat Peak E' Morgan: 4.8 cm/sec Left Ventricle Ejection Fraction = 45-50%. The transmitral spectral Doppler flow pattern is suggestive of impaired L V relaxation. Septal motion is consistent with conduction abnormality. Right Ventricle The right ventricle is normal in size and function. Atria Normal left and right atrial size and function. Mitral Valve The mitral valve is grossly normal. There is no mitral valve stenosis. There is trace to mild mitral regurgitation. Tricuspid Valve The tricuspid valve is not well visualized, but is grossly normal. There is mild tricuspid regurgitat ion. Aortic Valve There is mild aortic sclerosis.;. No hemodynamically significant valvular aortic stenosis. Mild aorti c regurgitation. Pulmonic Valve The pulmonic valve is not well seen, but is grossly normal. There is no pulmonic valvular stenosis. Great Vessels The aortic root is normal size. Pericardium/Pleura Small pericardial effusion (<1cm). There are no echocardiographic indications of cardiac tamponade. Interpretation Summary Septal motion is consistent with conduction abnormality. Ejection Fraction = 45-50%. The transmitral spectral Doppler flow pattern is suggestive of impaired LV relaxation. The right ventricle is normal in size and function. There is trace to mild mitral regurgitation. There is mild tricuspid regurgitation. There is mild aortic sclerosis.; Mild aortic regurgitation. The aortic root is normal size. Small pericardial effusion (<1cm) There are no echocardiographic indications of cardiac tamponade. MD Slava Han 02/26/2018 11:56 AM
[2018-02-26 12:23] VITALS: BP 135/68; PULSE 77; TEMP 98.4
== END 2018-02-26 13:20 ==
LOC: JER 09:58 → UNDOADMOB 11:05 → INTOOBSV 11:05 → JERBED 11:05 → J4S 15:51 → JERBED 16:34
PROVIDERS: ADMIT Internal Medicine; ATTEND Internal Medicine
PROC: 3E033NZ Introduction of Analgesics, Hypnotics, Sedatives into Peripheral Vein, Percutaneous Approach (ICD-10-PCS; principal; 2018-02-25)
PROC: 3E0337Z Introduction of Electrolytic and Water Balance Substance into Peripheral Vein, Percutaneous Approach (ICD-10-PCS; 2018-02-25)
DX: F23 Brief psychotic disorder (principal); I44.7 Left bundle-branch block, unspecified; F03.90 Unspecified dementia, unspecified severity, without behavioral disturbance, psychotic disturbance, mood disturbance, and anxiety; R41.82 Altered mental status, unspecified; I51.7 Cardiomegaly; E78.00 Pure hypercholesterolemia, unspecified; R07.89 Other chest pain; R94.31 Abnormal electrocardiogram [ECG] [EKG]; F20.2 Catatonic schizophrenia
CPT/HCPCS: 36415; 70450-TC; 70551-TC; 71045-TC-FY; 80053; 80164; 80307; 81003; 82465; 82550; 82962; 83718; 83721; 84478; 84484; 85025; 85610; 86850; 86900; 86901; 87040; 87086; 93005; 93010; 93306-TC; 96374; 99285-25; G0378; J0131; J7030